=== PATIENT | male | born 1950 | race Caucasian/White ===

== ENCOUNTER → 2018-01-05 13:35 | Outpatient (CLI) | payer MEDICARE, OTHER, SELFPAY ==
--- NOTE | 2018-01-05 13:43 | XR_ITS ---
XR foot LT min 3V HISTORY: Left foot pain ITS.REASON: FOOT PAIN ORDERING PHYSICIAN: Jose Lopez MD PATIENT AGE: 67 years COMPARISON: None FINDINGS: Severe osteoarthritic changes are present at the first metatarsal-phalangeal joint with bony hypertrophic changes at this region. No acute fracture or dislocation evident. IMPRESSION: Severe osteoarthritis of the first metatarsophalangeal joint
== END ==
PROVIDERS: PCP Internal Medicine Adolescent Medicine; Visit Provider Internal Medicine Adolescent Medicine
DX: M79.672 Pain in left foot (principal)
CPT/HCPCS: 73630

== ENCOUNTER 2018-01-05 14:03 | Outpatient (RCR) | payer MEDICARE, OTHER, SELFPAY | END 2018-01-05 14:04 | disposition home or self-care (01) | LOC: PT 14:03 | PROVIDERS: Visit Provider Internal Medicine Adolescent Medicine | DX: S93.602A Unspecified sprain of left foot, initial encounter (principal) | CPT/HCPCS: 97760 ==

== ENCOUNTER → 2019-11-23 11:34 | Outpatient (CLI) | payer MEDICARE, OTHER, SELFPAY ==
[2019-11-23 12:30] LABS: Basophils # 0.1 K/mm3 (0-0.2); Basophils % 0.5 % (0.1-2.0); Eosinophils # 0.2 K/mm3 (0.0-0.4); Eosinophils % 2.6 % (0.1-12.0); Hematocrit 48.2 % (42.0-52.0); Hemoglobin 16.5 g/dL (14.1-18.0); Lymphocytes # 1.7 K/mm3 (0.7-4.5); Mean Corpuscular HGB Conc 34.4 g/dL (31.8-35.4); Mean Corpuscular Hemoglobin 30.6 pg (27.0-31.2); Mean Corpuscular Volume 89.2 fl (80-94); Monocytes # 0.5 K/mm3 (0.1-1.0); Monocytes % 5.1 % (1.7-9.3); Neutrophils # 6.3 K/mm3 (1.8-7.8); Neutrophils % 72.7 % (37.0-80.0); Platelet Count 292 K/mm3 (142-424); Red Cell Distribution Width 13.2 % (11.5-17.5); White Blood Count 8.7 K/mm3 (4.8-10.8)
[2019-11-23 14:11] LABS: Free Thyroxine Index 2.2 ug/dL (5.93-13.13); Triiodothryronine (T3) Uptake 31 % (23.5-40.5)
[2019-11-23 14:15] LABS: Alanine Aminotransferase 18 U/L (12-78); Albumin Level 3.9 g/dl (3.5-5.0); Albumin/Globulin Ratio 1.3 (1.1-1.8); Alkaline Phosphatase 72 U/L (38-126); Anion Gap 10.6 mEq/L (5-15); Aspartate Amino Transferase 22 U/L (17-59); Bilirubin,Total 0.7 mg/dl (0.2-1.3); Blood Urea Nitrogen 20 mg/dl (9-20); Calcium 9.5 mg/dl (8.4-10.2); Carbon Dioxide 29 mmol/L (22.0-30.0); Chloride 106 mmol/L (98-107); Chol/HDL Ratio 5.9 (1-3.5); Cholesterol 212 mg/dl (140-200); Estimated Glomerular Filt Rate 83 ml/min (>60); GFR (African American) 101 ML/MIN (>60); Glucose 119 mg/dl (74-100); HDL Cholesterol 36 mg/dl (40-60); Potassium 4.6 mmoL/L (3.5-5.1); Sodium 141 mmol/L (136-145); Total Protein,Serum 6.9 g/dl (6.3-8.2); Triglycerides 188 mg/dl (30-150); VLDL Cholesterol 38 mg/dL (0-40)
[2019-11-23 14:25] LABS: Thyroid Stimulating Hormone 1.18 uIU/mL (0.465-4.68)
[2019-11-23 14:26] LABS: Direct LDL Cholesterol 151.47 mg/dL (100-129)
[2019-11-23 15:05] LABS: Vitamin B12 327 pg/mL (239-931)
[2019-11-26 15:10] LABS: Methylmalonic Acid 264 nmol/L (0-378)
[2019-11-26 15:21] LABS: Treponema pallidum Ab (FTA-ABS Non Reactive (Non Reactive)
== END ==
PROVIDERS: Visit Provider Internal Medicine Adolescent Medicine
DX: K21.9 Gastro-esophageal reflux disease without esophagitis (principal); E78.5 Hyperlipidemia, unspecified; E53.8 Deficiency of other specified B group vitamins; G60.9 Hereditary and idiopathic neuropathy, unspecified
CPT/HCPCS: 36415; 80053; 80061; 82131; 82607; 84436; 84443; 84479; 85025; 86780

== ENCOUNTER → 2020-11-23 14:01 | Outpatient (CLI) | payer MEDICARE, OTHER, SELFPAY ==
[2020-11-23 14:21] LABS: Basophils # 0.1 K/mm3 (0-0.2); Basophils % 0.7 % (0.1-2.0); Eosinophils # 0.3 K/mm3 (0.0-0.4); Hematocrit 46.3 % (42.0-52.0); Hemoglobin 15.1 g/dL (14.1-18.0); Lymphocytes # 1.9 K/mm3 (0.7-4.5); Mean Corpuscular HGB Conc 32.5 g/dL (31.8-35.4); Mean Corpuscular Hemoglobin 29.4 pg (27.0-31.2); Mean Corpuscular Volume 90.3 fl (80-94); Mean Platelet Volume 7.7 fl (7.4-10.4); Monocytes # 0.5 K/mm3 (0.1-1.0); Neutrophils # 5.6 K/mm3 (1.8-7.8); Neutrophils % 67.3 % (37.0-80.0); Platelet Count 324 K/mm3 (142-424); Red Blood Count 5.13 M/mm3 (4.60-6.20); Red Cell Distribution Width 13.5 % (11.5-17.5); White Blood Count 8.3 K/mm3 (4.8-10.8)
[2020-11-23 15:28] LABS: Alanine Aminotransferase 17 U/L (12-78); Albumin Level 3.8 g/dl (3.5-5.0); Albumin/Globulin Ratio 1.3 (1.1-1.8); Alkaline Phosphatase 87 U/L (38-126); Anion Gap 9.7 mEq/L (5-15); Aspartate Amino Transferase 22 U/L (17-59); Bilirubin,Total 0.9 mg/dl (0.2-1.3); Blood Urea Nitrogen 17 mg/dl (9-20); Calcium 9.1 mg/dl (8.4-10.2); Carbon Dioxide 27 mmol/L (22.0-30.0); Chloride 107 mmol/L (98-107); Cholesterol 159 mg/dl (140-200); Estimated Glomerular Filt Rate 74 ml/min (>60); GFR (African American) 89 ML/MIN (>60); Glucose 99 mg/dl (74-100); HDL Cholesterol 40 mg/dl (40-60); Potassium 4.7 mmoL/L (3.5-5.1); Sodium 139 mmol/L (136-145); Total Protein,Serum 6.8 g/dl (6.3-8.2); Triglycerides 118 mg/dl (30-150); VLDL Cholesterol 24 mg/dL (0-40)
[2020-11-23 15:39] LABS: Direct LDL Cholesterol 87.93 mg/dL (100-129)
[2020-11-23 16:16] LABS: Vitamin B12 432 pg/mL (239-931)
== END ==
PROVIDERS: Visit Provider Internal Medicine Adolescent Medicine
DX: J44.9 Chronic obstructive pulmonary disease, unspecified (principal); E78.5 Hyperlipidemia, unspecified; E53.8 Deficiency of other specified B group vitamins
CPT/HCPCS: 36415; 80053; 80061; 82607; 85025

== ENCOUNTER → 2020-12-01 15:51 | Outpatient (CLI) | payer MEDICARE, OTHER, SELFPAY ==
--- NOTE | 2020-12-01 15:55 | MR_ITS ---
PROCEDURE: MR HEAD/BRAIN WO CON CLINICAL INDICATION: PARESTHESIA, HISTORY OF STROKE COMPARISON: CT HEADWO CT head/brain wo con from 10/04/2017 TECHNIQUE: Routine multiplanar multi echo sequences are performed without gadolinium enhancement. FINDINGS: No midline shift, mass effect, intracranial hemorrhage, or hydrocephalus is evident. No evidence of acute infarction. The cerebellopontine angles, cerebellum, and brainstem have an unremarkable appearance. Scattered periventricular and subcortical T2 white matter hyperintensities are present. A small cystic areas present in the right occipital lobe measuring approximately 10 mm with some minimal surrounding gliosis and could be due to an old area of infarction with cystic encephalomalacia. No mass effect. The pituitary, optic chiasm, corpus callosum, and craniocervical junction have an unremarkable appearance. No mastoid effusion or sinus air-fluid level. 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 IMPRESSION: No acute intracranial findings. 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 Dictated by: Yovany Gregory MD 12/02/2020 09:53 Yovany Gregory MD in [place] 12/02/2020 09:53
== END ==
PROVIDERS: PCP Internal Medicine Adolescent Medicine; Visit Provider Internal Medicine Adolescent Medicine
DX: R20.2 Paresthesia of skin (principal); Z86.73 Personal history of transient ischemic attack (TIA), and cerebral infarction without residual deficits
CPT/HCPCS: 70551

== ENCOUNTER 2022-06-30 12:02 | Emergency (ER) | payer MEDICARE, OTHER, SELFPAY ==
[2022-06-30] VITALS (8 sets, daily range): BP systolic 115–164; BP diastolic 56–86; PULSE 63–89; RESP 18; TEMP 36.6–36.8; O2SAT 95–96; BMI 31.4
--- NOTE | 2022-06-30 12:18 | PC.NURSE ---
Dr. Aguilar at BS for pt eval, at BS
--- NOTE | 2022-06-30 12:21 | CT_ITS ---
FINAL REPORT TECHNIQUE: thin section axial CT with and without IV contrast supplemented with multiplanar 3-D reconstruction of the head. This study was performed with techniques to keep radiation doses as low as reasonably achievable, (ALARA)individualized dose reduction techniques using automated exposure control or adjustment of mA and/or kV according to the patient's size were employed. CLINICAL HISTORY: left sided numbness, r/o stroke COMPARISON: None FINDINGS: CTA: There is moderate calcification at the origin of the right internal carotid artery with less than 50% stenosis. Left carotid bifurcation is widely patent. Vertebral arteries are patent and symmetric. No evidence of large vessel occlusion. Basilar artery is patent. Normal intracranial branching. IMPRESSION: No acute process. Reviewed, Interpreted and Dictated by Roque Rees MD Transcribed by Suzette Haque Authenticated and [facility]
--- NOTE | 2022-06-30 12:21 | CT_ITS ---
FINAL REPORT TECHNIQUE: Axial CT images were performed through the head. Coronal reformatted images were submitted. This study was performed with techniques to keep radiation doses as low as reasonably achievable (ALARA). Individualized dose reduction techniques using automated exposure control or adjustment of mA and/or kV according to the patient's size were employed. CLINICAL HISTORY: right sided numbness, r/o stroke COMPARISON: 12/01/2020 FINDINGS: There is mild atrophy. There is proportional ventriculomegaly. There are multiple old lacunar infarcts in the deep white matter of the right hemisphere. No acute hemorrhage, mass effect, or edema. There is a rounded focus of encephalomalacia in the right occipital region not well identified on the previous exam measuring approximate 3.1 cm in diameter. There is a prostatic or calcified right globe. There is no abnormal extra-axial fluid seen. There is moderate chronic right maxillary sinusitis. IMPRESSION: Multiple lacunar infarcts deep white matter of the right hemisphere appear chronic. Rounded focus of encephalomalacia right occipital region, new since previous. Given rounded configuration, correlation with MRI may be of value. Chronic right maxillary sinusitis. Reviewed, Interpreted and Dictated by Roque Rees MD Transcribed by Suzette Haque Authenticated and [facility]
--- NOTE | 2022-06-30 12:21 | CT_ITS ---
FINAL REPORT TECHNIQUE: NASCET technique utilized for stenosis evaluation. CLINICAL HISTORY: left sided numbness, r/o stroke COMPARISON: None FINDINGS: There is moderate calcification with less than 50% stenosis at the origin of the right internal carotid artery. Left carotid bifurcation is widely patent. The vertebral arteries are symmetric and patent. There is significant hypertrophic changes of degenerative disc disease at C5-6 and C6-7. There is bilateral neural foraminal narrowing, particularly at C6-7 level. IMPRESSION: Moderate calcification less than 50% stenosis right ICA. Reviewed, Interpreted and Dictated by Roque Rees MD Transcribed by Suzette Haque Authenticated and [facility]
--- NOTE | 2022-06-30 12:37 | PC.NURSE ---
rounded on pt turned light off and turned over head light on so it wasnt so bright for patient or visitor, at bs
--- NOTE | 2022-06-30 12:51 | PC.NURSE ---
called rad for CD
[2022-06-30 12:56] LABS: Basophils % 0.5 % (0.1-2.0); Eosinophils # 0.2 K/mm3 (0.0-0.4); Eosinophils % 2.5 % (0.1-12.0); Hemoglobin 15.2 g/dL (14.1-18.0); Lymphocytes # 1.2 K/mm3 (0.7-4.5); Lymphocytes % 13.2 % (10-50); Mean Corpuscular HGB Conc 32.4 g/dL (31.8-35.4); Mean Corpuscular Hemoglobin 28.9 pg (27.0-31.2); Mean Corpuscular Volume 89.3 fl (80-94); Mean Platelet Volume 6.2 fl (7.4-10.4); Monocytes # 0.4 K/mm3 (0.1-1.0); Monocytes % 4.7 % (1.7-9.3); Neutrophils # 7.4 K/mm3 (1.8-7.8); Neutrophils % 79.3 % (37.0-80.0); Platelet Count 329 K/mm3 (142-424); Red Blood Count 5.27 M/mm3 (4.60-6.20); Red Cell Distribution Width 12.7 % (11.5-17.5); White Blood Count 9.3 K/mm3 (4.8-10.8)
--- NOTE | 2022-06-30 13:01 | HMH.EDGENADL ---
Discharge Plan Disposition Patient Disposition: Home, Self-Care Prescriptions Prescriptions: No Action No Known Home Medications Referrals Follow up/Referrals: Iris Granger APRN [Primary Care Provider] - See instructions Activity Restrictions/Add. Instructions Additional Instructions/Restrictions: Follow up with Neurology, they will call you with appointment in next few days. Return for worsening weakness or any concerns within 8 hours. Clinical Impressions Clinical Impression: TIA (transient ischemic attack) Discharge ED Provider: Yunior Aguilar General Adult HPI General Chief complaint: Weakness Stated complaint: Lt shoulder numbness, phy ref Time Seen by Provider: 06/30/22 12:05 Mode of Arrival: Wheelchair Source of Information: Patient, Spouse and Medical Record Limitations: No Limitations Description of Symptoms (Recalled from ER Triage Doc. by RN): c/o left sided tingling and numbness from his left side of mouth down to his toes. Pt states that he started theses symptoms one week, they would come and go, 4 days ago the symptoms stayed consisted all day. On assessment the left arm felt like more pressure than the right when rubbed at the same time. Left leg can feel touch but not rubbing like on the right leg. History of Present Illness HPI narrative: 72-year-old male history of TIA presents with left-sided tingling and numbness for the last week. He says that this has been going on for a week no weakness involved. He says his forehead is involved at times. No fever chills cough chest pain abdominal pain nausea or vomiting. He had similar symptoms 4 years ago that ended up resolving. No headache , Related Data Home Medications Medication Instructions Recorded Confirmed No Known Home Medications 06/30/22 06/30/22 Allergies Allergy/AdvReac Type Severity Reaction Status Date / Time aspirin [ASPIRIN] Allergy Unknown Unverified 06/30/22 10:47 Penicillins [PENICILLINS] Allergy Unknown Unverified 06/30/22 10:[address] [facility] Disclaimer: The information contained in this section may have been updated after the patient was seen, as this information can be updated by other users. Social History Smoking Status: Former smoker alcohol intake: never current occupational status: unemployed Travel in the last 8 weeks: None ROS Obtained: Yes All systems reviewed & no additional complaints except as documented Constitutional Constitutional: Denies fatigue Eyes Eyes: Denies dry eyes ENT Ears, Nose, Mouth, and Throat: Denies dry mouth Cardiovascular Cardiovascular: Denies diaphoresis and Denies dyspnea Respiratory Respiratory: Denies dyspnea Gastrointestinal Gastrointestingal: Denies heartburn Genitourinary Male Genitourinary: Denies flank pain Musculoskeletal Musculoskeletal: Denies joint swelling Integumentary/Breasts Skin/Breast: Denies rash Neurologic Neurologic: Denies confusion Endocrine Endocrine: Denies fatigue Hematologic/Lymphatic Henatologic/Lymphatic: Denies easy bleeding Allergic/Immunologic Allergic/Immunologic: Denies urticaria Physical Exam General General appearance: alert and in no apparent distress Eye Eye exam: Present PERRL and EOMI ENT ENT exam: Present normal exam and normal oropharynx Neck Neck exam: Present normal inspection Chest Chest inspection: Present symmetric chest wall rise Respiratory Respiratory exam: Present normal lung sounds bilaterally; Absent respiratory distress Cardiovascular Cardiovascular exam: Present regular rate and normal rhythm Abdominal Exam Abdominal exam: Present soft; Absent distention, tenderness, guarding, rebound, Berg's sign or tenderness at McBurney's Point Rectal Exam Rectal exam: Present deferred Back Exam Back exam: Present normal inspection Neurological Exam Neurological exam: Present alert, oriented X3, CN II-XII intact and normal gait; Absent motor sensory
[2022-06-30 13:03] LABS: Chloride 96 mmol/L (98-107); Sodium 135 mmol/L (136-145)
[2022-06-30 13:04] LABS: Potassium 4.3 mmoL/L (3.5-5.1)
[2022-06-30 13:06] LABS: Alanine Aminotransferase 18 U/L (12-78); Albumin Level 3.9 g/dl (3.5-5.0); Albumin/Globulin Ratio 1.2 (1.1-1.8); Alkaline Phosphatase 69 U/L (38-126); Anion Gap 14.3 mEq/L (5-15); Aspartate Amino Transferase 24 U/L (17-59); Bilirubin,Total 0.9 mg/dl (0.2-1.3); Blood Urea Nitrogen 14 mg/dl (9-20); Carbon Dioxide 29 mmol/L (22.0-30.0); Creatinine Clearance Estimated 100 mL/min (50-200); Estimated Glomerular Filt Rate 73 ml/min (>60); GFR (African American) 89 ML/MIN (>60); Globulin 3.3 g/dL (1.3-3.2); Total Protein,Serum 7.2 g/dl (6.3-8.2)
[2022-06-30 13:07] LABS: Calcium 8.7 mg/dl (8.4-10.2); Glucose 119 mg/dl (74-100)
[2022-06-30 13:26] LABS: Troponin I < 0.01 ng/ml (0.00-0.034)
[2022-06-30 13:37] LABS: Thyroid Stimulating Hormone 0.64 uIU/mL (0.465-4.68)
--- NOTE | 2022-06-30 13:50 | PC.NURSE ---
bill spoke with pt about what was going on and updated her.. call light at bs
--- NOTE | 2022-06-30 15:12 | PC.NURSE ---
calling Dr nino office to schedule a CVA, TIA. The stated the pt would have to follow up with family dr then have a referral to been seen, Dr Aguilar asked to just speak with Dr nino so calling back to speak with Dr nino
--- NOTE | 2022-06-30 15:20 | PC.NURSE ---
guest relations receptionist states that unless pt has been seen in office before she would talk to , unfortunately the pt hasn't so she would not speak to Ammon Lozada
--- NOTE | 2022-06-30 15:26 | PC.NURSE ---
paged neuro stroke at [place]
--- NOTE | 2022-06-30 15:31 | PC.NURSE ---
Dr brasher speaking with Neuro
== END 2022-06-30 16:09 | disposition home or self-care (01) ==
PROVIDERS: Emergency Provider Emergency Medicine; PCP Nurse Practitioner Family
DX: G45.9 Transient cerebral ischemic attack, unspecified (principal); Z87.891 Personal history of nicotine dependence
CPT/HCPCS: 70450; 70496; 70498; 80053; 83735; 84443; 84484; 85025; 99285; Q9967

== ENCOUNTER → 2022-11-10 09:13 | Outpatient (CLI) | payer MEDICARE, OTHER, SELFPAY ==
[2022-11-10 12:00] LABS: Chol/HDL Ratio 3.6 (1-3.5); Cholesterol 113 mg/dl (140-200); HDL Cholesterol 31 mg/dl (40-60); Triglycerides 65 mg/dl (30-150); VLDL Cholesterol 13 mg/dL (0-40)
[2022-11-10 12:11] LABS: Direct LDL Cholesterol 68.25 mg/dL (100-129)
== END ==
PROVIDERS: PCP Internal Medicine Adolescent Medicine; Visit Provider Internal Medicine
DX: I63.9 Cerebral infarction, unspecified (principal)
CPT/HCPCS: 36415; 80061